=== PATIENT | male | born 1965 | race Caucasian/White ===

== ENCOUNTER 2016-12-04 09:21 | Emergency (ER) | payer OTHER ==
[~2016-12-04] VITALS: Ht 182.9 cm; Wt 127.0 kg
[2016-12-04] MEDS ORDERED: HYDROCHLOROTH12.5 M1 PO (09:43)
[2016-12-04] MEDS ORDERED: BENICAR20 MG PO (09:43)
[2016-12-04] MEDS ORDERED: DEXILANT30 MG PO (09:44)
[2016-12-04] MEDS ORDERED: VENLAFAXIN75 MG/1 T2 PO (09:44)
[2016-12-04 10:02] LABS: ABSOLUTE NEUTROPHILS 10.6 thou/uL (1.4-8.2); BASOPHILS 0.4 % (0.0-2.0); EOSINOPHILS 0.1 % (0.0-3.0); HEMATOCRIT 34.9 % (42.0-52.0); HEMOGLOBIN 11.3 gm/dL (14.0-18.0); LYMPHOCYTES 12.6 % (24.0-44.0); MCH 23.1 pg (26.0-34.0); MCHC 32.4 g/dL (28.0-37.0); MCV 71.1 fL (80.0-100.0); MONOCYTES 10.1 % (1.0-8.0); PLATELET COUNT 382 thou/uL (150-400); POLYS 76.8 % (36.0-66.0); RBC 4.91 mil/uL (4.50-6.00); RDW 19.5 % (10.5-14.5); WBC 13.8 thou/uL (4.0-11.0)
[2016-12-04 10:03] LABS: MANUAL DIFF NO
[2016-12-04 10:13] LABS: URINE BILIRUBIN NEGATIVE (Negative); URINE BLOOD NEGATIVE (Negative); URINE COLOR YELLOW; URINE GLUCOSE-RANDOM* NEGATIVE (Negative); URINE KETONES NEGATIVE (Negative); URINE LEUKOCYTES-REFLEX NEGATIVE (Negative); URINE PROTEIN (DIPSTICK) NEGATIVE (Negative); URINE SPECIFIC GRAVITY <= 1.005 (1.003-1.035); URINE UROBILINOGEN 0.2 E.U./dl (0.2-1.0)
[2016-12-04 10:33] LABS: ALBUMIN 3.9 g/dL (3.4-5.0); CALCIUM 9.4 mg/dL (8.5-10.1); CREATININE 1.8 mg/dL (0.6-1.3); DIRECT BILIRUBIN 0.1 mg/dL (<0.1-0.3); POTASSIUM 3.9 mmol/L (3.5-5.1); TOTAL BILIRUBIN 0.5 mg/dL (<0.1-1.0); TOTAL PROTEIN 7.9 g/dL (6.4-8.2)
[2016-12-04] MEDS ORDERED: ZOFRAN ODT4 MG PO (12:35)
[2016-12-04] MEDS ORDERED: NORCO 5-325 TA1 EACH PO (12:35)
[2016-12-04 13:28] VITALS: BP 165/89
== END 2016-12-04 13:29 | disposition home or self-care (01) ==
LOC: ER 09:21
PROVIDERS: Emergency Medicine
DX: N20.1 Calculus of ureter (principal); N17.9 Acute kidney failure, unspecified; I10 Essential (primary) hypertension; Z88.5 Allergy status to narcotic agent